=== PATIENT | female | born 1965 | race Caucasian/White ===

== ENCOUNTER → 2016-10-17 | Outpatient (CLI) | payer OTHER ==
[~2016-10-17] MED LIST: ACET-703 PO; AMLO10 PO; ASPI1TAB69 PO; LISI-515 PO; METO-309 PO; TAMO20TA6 PO; TYLETAB34 PO
--- NOTE | 2016-10-17 10:25 | ECHRPT ---
Indication: EVAL EF CONCLUSIONS The left ventricular systolic function is normal with an estimated ejection fraction in the range of 60-65%. No regional wall motion abnormalities are present. Normal left ventricular size. Wall thickness is measured at the upper limits of normal. BP: / HR: Rhythm: Sinus MEASUREMENTS (Male / Female) Normal Values Technical Quality:Fair 2D ECHO LV Diastolic Diameter PLAX 4.4 cm 4.2 - 5.9 / 3.9 - 5.3 cm LV Systolic Diameter PLAX 3.2 cm IVS Diastolic Thickness 1.2 cm 0.6 - 1.0 / 0.6 - 0.9 cm LVPW Diastolic Thickness 1.2 cm 0.6 - 1.0 / 0.6 - 0.9 cm LV Relative Wall Thickness 0.6 RV Internal Dim ED PLAX 2.6 cm LVOT Diameter 2.0 cm LA Systolic Diameter LX 2.8 cm 3.0 - 4.0 / 2.7 - 3.8 cm LV Ejection Fraction MOD 4C 63.2 % LV Ejection Fraction 4C AL 65.5 % M-MODE Aortic Root Diameter MM 3.2 cm AV Cusp Separation MM 1.8 cm DOPPLER AV Peak Velocity 138.0 cm/s AV Peak Gradient 7.6 mmHg LVOT Peak Velocity 113.0 cm/s LVOT Peak Gradient 5.1 mmHg AV Area Cont Eq pk 2.6 cm MV Area PHT 4.8 cm Mitral E Point Velocity 98.2 cm/s Mitral A Point Velocity 90.3 cm/s Mitral E to A Ratio 1.1 PV Peak Velocity 89.6 cm/s PV Peak Gradient 3.2 mmHg FINDINGS LEFT VENTRICLE The left ventricular systolic function is normal with an estimated ejection fraction in the range of 60-65%. No regional wall motion abnormalities are present. Normal left ventricular size. Wall thickness is measured at the upper limits of normal. RIGHT VENTRICLE Normal right ventricular size and systolic function. LEFT ATRIUM The left atrial size is normal. RIGHT ATRIUM The right atrial size is normal. ATRIAL SEPTUM Normal atrial septal thickness without atrial level shunting by limited color doppler interrogation. AORTA The aortic root and proximal ascending aorta are normal in size on limited imaging. MITRAL VALVE Structurally normal mitral valve. No mitral valve stenosis or regurgitation. AORTIC VALVE Trileaflet aortic valve. No aortic valve stenosis or regurgitation. TRICUSPID VALVE Structurally normal tricuspid valve. No tricuspid valve stenosis or regurgitation. PULMONARY VALVE The pulmonary valve is not well visualized. VESSELS The inferior vena cava is normal in size. PERICARDIUM No pericardial effusion. Toney Hamm MD (Electronically Signed) Final Date:17 October 2016 10:24
== END ==
LOC: HECH 08:44
PROVIDERS: ATTEND Internal Medicine Hematology & Oncology
DX: Z13.6 Encounter for screening for cardiovascular disorders (principal)
CPT/HCPCS: 93306

== ENCOUNTER → 2017-05-22 | Outpatient (CLI) | payer OTHER ==
--- NOTE | 2017-05-22 09:43 | RADRPT ---
EXAM DATE/TIME: 05/22/2017 09:30 [facility] COMPARISON: CHEST SINGLE AP, November 30, 2015, 18:13. INDICATIONS : Follow up reconstructive surgery post bilateral mastectomy. MEDICAL HISTORY : Carcinoma, breast. SURGICAL HISTORY : Mastectomy, bilateral. Infusaport placement. ENCOUNTER: Initial ACUITY: >1 year PAIN SCORE: 0/10 LOCATION: Bilateral chest FINDINGS: AP and lateral views of the chest were obtained and demonstrate interval placement of right-sided imp lantable port catheter with the tip projected over the superior vena cava. There is no pneumothorax. There are surgical clips in both axillary regions. The previously noted bilateral surgical drains hav e been removed. A catheter-like device is projected over the lower right lateral chest wall. There ar e no infiltrates or effusions. The heart size is at the upper limits of normal. The bony thorax is in tact. CONCLUSION: 1. Interval placement of right-sided implantable port catheter. 2. No acute cardiac pulmonary disease. 3. Postsurgical changes again noted in the axillary regions with interval removal of surgical drains. 4. Catheter like device projected over the lower right lateral chest wall of unclear significance. Norbert Dugan MD on May 22, 2017 at 9:37 Board Certified Radiologist. This report was verified electronically.
--- NOTE | 2017-05-23 00:06 | EKG ---
Date Performed: 05/22/2017 Time Performed: 09:02:32 PTAGE: 51 years EKG: Sinus rhythm . Low QRS voltages in precordial leads Borderline ECG PREVIOUS TRACING : 11/24/2015 10.21 DOCTOR: Jono Alvarado Interpretating Date/Time 05/23/2017 00:00:47
== END ==
LOC: HCAV 08:43
DX: Z85.3 Personal history of malignant neoplasm of breast (principal); R94.31 Abnormal electrocardiogram [ECG] [EKG]
CPT/HCPCS: 71046; 93005